=== PATIENT | female | born 1985 | race Caucasian/White ===

== ENCOUNTER → 2025-04-22 16:27 | Outpatient (REF) | payer BC, SELFPAY ==
[2025-04-22 17:22] LABS: Hematocrit 37.9 % (37.0-47.0); Hemoglobin 13.0 g/dL (12.0-16.0); Mean Corp Hgb Conc. 34.3 g/dL (33.0-37.0); Mean Corpuscular Volume 86.3 fL (81.0-99.0); Nucleated Red Blood Cells % 0 %; Platelet Count 265 10^3/uL (130-400); Red Cell Dist. Width 12.9 % (11.5-14.5)
[2025-04-22 17:47] LABS: ALT (SGPT) 25 U/L (0-35); AST (SGOT) 26 U/L (14-36); Albumin 4.6 g/dl (3.5-5.0); Alkaline Phosphatase 65 U/L (38-126); Blood Urea Nitrogen 10 mg/dl (7-17); Calcium 9.2 mg/dl (8.4-10.2); Carbon Dioxide 27 mmol/L (22-30); Chloride 103 mmol/L (98-107); Glucose 87 mg/dl (70-99); Potassium 4.0 mmol/L (3.5-5.1); Sodium 136 mmol/L (135-145); Total Protein 7.5 g/dl (6.3-8.2); eGFR > 60.00
[2025-04-22 17:51] LABS: C-Reactive Protein 9.50 mg/L (0.0-10.00)
[2025-04-22 18:08] LABS: Vitamin D, 25-OH*** 21.9 ng/mL (30-80)
[2025-04-25 01:55] LABS: SSA 52 (Ro)(ENA) Ab, IgG 1 AU/mL (0-40); SSA 60 (Ro)(ENA) Ab, IgG 0 AU/mL (0-40); SSB (La)(ENA) Ab, IgG 0 AU/mL (0-40)
== END ==
LOC: REG 16:27
PROVIDERS: ATTENDING PHYSICIAN Student in an Organized Health Care Education/Training Program; FAMILY PHYSICIAN Family Medicine
DX: D86.9 Sarcoidosis, unspecified (principal); L52 Erythema nodosum; M25.472 Effusion, left ankle; R53.1 Weakness; R59.9 Enlarged lymph nodes, unspecified; R79.82 Elevated C-reactive protein (CRP)
CPT/HCPCS: 36415; 71046; 80053; 82164; 82306; 82652; 85025; 85549; 85652; 86140; 86235

== ENCOUNTER → 2025-04-23 13:47 | Outpatient (REF) | payer BC, SELFPAY | LOC: HWRAD 13:47 | PROVIDERS: ATTENDING PHYSICIAN Student in an Organized Health Care Education/Training Program; FAMILY PHYSICIAN Family Medicine | DX: D86.9 Sarcoidosis, unspecified (principal); L52 Erythema nodosum; M25.472 Effusion, left ankle; R53.1 Weakness; R59.9 Enlarged lymph nodes, unspecified; R79.82 Elevated C-reactive protein (CRP) | CPT/HCPCS: 76536 ==

== ENCOUNTER → 2025-05-21 15:52 | Outpatient (REF) | payer BC, SELFPAY | LOC: RCS 15:52 | PROVIDERS: ATTENDING PHYSICIAN Physician Assistant Medical; FAMILY PHYSICIAN Family Medicine | DX: M79.605 Pain in left leg (principal); M79.89 Other specified soft tissue disorders | CPT/HCPCS: 93306 ==

== ENCOUNTER → 2025-06-06 16:15 | Outpatient (REF) | payer BC, SELFPAY | LOC: RAD 16:15 | PROVIDERS: ATTENDING PHYSICIAN Physician Assistant Medical; FAMILY PHYSICIAN Family Medicine | DX: M79.605 Pain in left leg (principal); M79.89 Other specified soft tissue disorders | CPT/HCPCS: 93971 ==